=== PATIENT | female | born 1985 | race African-American/Black ===

== ENCOUNTER 2017-05-13 08:38 | Emergency (ER) | payer OTHER ==
[~2017-05-13] VITALS: Ht 170.2 cm; Wt 72.6 kg
[2017-05-13] MEDS ORDERED: ALBENZA200 MG PO (10:15)
[2017-05-13] MEDS ORDERED: FLAGYL500 MG PO (10:15)
[2017-05-13 10:21] VITALS: BP 129/65
[2017-05-14 15:07] LABS: CHLAMYDIA TRACHOMATIS-PCR Negative (Negative); NEISSERIA GONORRHEA-PCR Negative (Negative)
== END 2017-05-13 10:22 | disposition home or self-care (01) ==
LOC: ER 08:38
PROVIDERS: Emergency Medicine
DX: N76.0 Acute vaginitis (principal); B96.89 Other specified bacterial agents as the cause of diseases classified elsewhere